=== PATIENT | female | born 1935 | race Caucasian/White ===

== ENCOUNTER 2017-09-30 08:24 | Day surgery (SDC) | payer MEDICARE, OTHER ==
[~2017-09-30 08:24] MED LIST: Lactated Ringers 1,000 ML IV SCH; Lidocaine 1%/Sod Bicarbonate in NS 8.4% 1 ML Syringe IDERM PRN; Sodium Chloride 0.9% 10 ML Syringe FLUSH PRN
[2017-09-30] MEDS ORDERED: Propofol 200 MG/20 ML SDV ONE (08:34)
--- NOTE | 2017-09-30 08:59 | PCM.PREANE ---
Preanesthetic Assessment - Anesthesia/Transfusion/Family Hx Anesthesia History: Prior Anesthesia Without Reaction Family History of Anesthesia Reaction: No Transfusion History: Prior Transfusion Without Reaction Intubation History: Unknown - Review of Systems General: No Symptoms Pulmonary: No Symptoms (quit smokin), Cough (due to seasonal allergies) Cardiovascular: No Symptoms (history of HTN), Palpitations Gastrointestinal: No Symptoms (GERD), Diarrhea (history of C-diff.) Neurological: No Symptoms, Numbness (bilateral hands on occasion) Other: Reports: None (acute UTI), Easy Bleeding (history of rectal bleeding), Diabetes (am blood qdeyl=[phone]), Liver Problems (abnormal liver functions), Depression - Physical Assessment NPO Status Date: 09/29/17 NPO Status Time: 23:00 Pulse: 78 O2 Sat by Pulse Oximetry: 93 Respiratory Rate: 16 Blood Pressure: 146/54 Temperature: 36.7 C Height: 1.65 m Weight: 92 kg ASA Class: 3 Mental Status: Alert & Oriented x3 Airway Class: Mallampati = 2 Dentition: Reports: Dentures (upper and lower) Thyro-Mental Finger Breadths: 3 Mouth Opening Finger Breadths: 3 ROM/Head Extension: Full Lungs: Clear to Auscultation, Normal Respiratory Effort Cardiovascular: Regular Rate, Regular Rhythm, No Murmurs - Allergies Allergies/Adverse Reactions: Allergies Allergy/AdvReac Type Severity Reaction Status Date / Time piroxicam Allergy Cannot Verified 09/29/17 15:08 Remember Sulfa (Sulfonamide Allergy Cannot Verified 09/29/17 15:08 Antibiotics) Remember - Anesthesia Plan Pre-Op Medication Ordered: None - Acknowledgements Anesthesia Type Planned: MAC Pt an Appropriate Candidate for the Planned Anesthesia: Yes Alternatives and Risks of Anesthesia Discussed w Pt/Guardian: Yes Pt/Guardian Understands and Agrees with Anesthesia Plan: Yes PreAnesthesia Questionnaire HEENT History: Reports: Other (See Below) Other HEENT History: facial trauma Cardiovascular History: Reports: High Cholesterol, Hypertension Respiratory History: Reports: Asthma Gastrointestinal History: Reports: GERD, Other (See Below) Other Gastrointestinal History: abdomnial pain, rectal bleeding, cdiff Genitourinary History: Reports: UTI, Recurrent, Other (See Below) Other Genitourinary History: 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 Musculoskeletal History: Reports: Arthritis, Other (See Below) Other Musculoskeletal History: knee abrasions Neurological History: Reports: None Psychiatric History: Reports: Depression Endocrine/Metabolic History: Reports: Diabetes, Type II Hematologic History: Reports: Other (See Below) Other Hematologic History: traumatic hematoma of cheek Immunologic History: Reports: None Oncologic (Cancer) History: Reports: Lung Dermatologic History: Reports: Other (See Below) Other Dermatologic History: melanoma, rash, skin lesion - Past Surgical History Head Surgeries/Procedures: Reports: None HEENT Surgical History: Reports: Cataract Surgery, Tonsillectomy Respiratory Surgical History: Reports: Other (See Below) Other Respiratory Surgeries/Procedures: lung surgery GI Surgical History: Reports: Appendectomy, Colonoscopy, Hernia, Inguinal Female Surgical History: Reports: Oophorectomy Male Surgical History: Reports: None Endocrine Surgical History: Reports: None Neurological Surgical History: Reports: None Musculoskeletal Surgical History: Reports: Hip Replacement Oncologic Surgical History: - SUBSTANCE USE Smoking Status *Q: Never Smoker Recreational Drug Use History: No - HOME MEDS Home Medications: Home Meds Hydrocortisone [Anusol-HC] 1 dose RECTAL BEDTIME 09/29/17 [History] Losartan [Cozaar] 50 mg PO DAILY 09/29/17 [History] Nabumetone [Relafen] 500 mg PO QID PRN 09/29/17 [History] Oxybutynin 5 mg PO TID PRN 09/29/17 [History] Sertraline HCl 200 mg PO DAILY 09/29/17 [History] atorvaSTATin [Lipitor] 10 mg PO DAILY 09/29/17 [History] metFORMIN HCl [Metformin HCl] 500 mg PO DAILY 09/29/17 [History] - CURRENT (IN HOUSE) MEDS Current Meds: Current Medications Lactated Ringer's (Ringers, Lactated) 1,000 mls @ 125 mls/hr IV ASDIRECTED [facility]MA Stop: 09/30/17 23:00 Lidocaine/Sodium Bicarbonate (Buffered Lidocaine 1% In Ns 8.4%) 0.25 ml IDERM ONETIME PRN PRN Reason: Prior to IV Start Stop: 09/30/17 18:00 Sodium Chloride (Saline Flush) 10 ml FLUSH ASDIRECTED PRN PRN Reason: Keep Vein Open Stop: 09/30/17 18:00 Discontinued Medications Propofol (Diprivan 20 Ml) Confirm Administered Dose 200 mg .ROUTE .STK-MED ONE Stop: 09/30/17 08:35
[2017-09-30] MEDS ORDERED: Lidocaine 1% 6 ML ONE (09:36)
[2017-09-30] MEDS ORDERED: Lactated Ringers 1,000 ML ONE (09:38)
--- NOTE | 2017-09-30 10:02 | PCM.OPNOTE ---
- General Post-Op/Procedure Note Date of Surgery/Procedure: 09/30/17 Operative Procedure(s): Colonoscopy with distal rectal mass biopsy 4 Findings: 1. External hemorrhoids 2. Posterior anal fissure 3. Ulcerating soft and friable distal rectal mass lesion about 3 cm in diameter 4. Sigmoid diverticulosis Pre Op Diagnosis: Bright red bleeding per rectum Post-Op Diagnosis: 1. External hemorrhoids. 2. Posterior anal fissure. 3. Ulcerating friable distal rectal mass lesion about 3 cm in diameter. 4. Sigmoid diverticulosis Anesthesia Technique: MAC, Moderate Sedation Primary Surgeon: Vik Fernandez Pathology: Biopsies distal rectal mass lesion EBL in mLs: 5 Complications: None Condition: Good Free Text/Narrative:: After adequate IV sedation and analgesia was obtained the patient was placed on her left side with monitoring. Perianal inspection revealed the external hemorrhoids which are uncomplicated. There was a posterior midline superficial anal fissure. On digital rectal examination I could appreciate a posterior rectal soft mass lesion which was mobile. A lubricated colonoscope was then inserted into the rectum then advanced to the cecum without difficulty. The bowel preparation was good. The cecum right colon and transverse colon were endoscopically normal and had no mass lesions or inflammatory changes that were seen. The descending colon was likewise unremarkable. The sigmoid had a few scattered uncomplicated diverticuli. The scope was then withdrawn to the rectum and in the retroflexed view the distal third rectal mass which was about 3 cm in diameter was visualized. Four-quadrant biopsies were taken with cold forceps. The specimens were retrieved. Air was removed as I finished the procedure which she tolerated well. [employer] photographs were taken for the patient and for the medical record.
--- NOTE | 2017-09-30 10:09 | PCM48HPAN ---
Post Anesthesia Note - EVALUATION WITHIN 48HRS OF ANESTHETIC Vital Signs in Normal Range: Yes Patient Participated in Evaluation: Yes Respiratory Function Stable: Yes Airway Patent: Yes Cardiovascular Function Stable: Yes Hydration Status Stable: Yes Pain Control Satisfactory: Yes Nausea and Vomiting Control Satisfactory: Yes Mental Status Recovered: Yes
== END 2017-09-30 10:52 | disposition home or self-care (01) ==
LOC: JD.SDS 08:24
PROVIDERS: ATTEND Surgery
DX: D12.8 Benign neoplasm of rectum (principal); K62.89 Other specified diseases of anus and rectum; K57.30 Diverticulosis of large intestine without perforation or abscess without bleeding; K64.4 Residual hemorrhoidal skin tags; K60.2 Anal fissure, unspecified; I10 Essential (primary) hypertension; K21.9 Gastro-esophageal reflux disease without esophagitis; E11.9 Type 2 diabetes mellitus without complications; F32.9 Major depressive disorder, single episode, unspecified; E78.00 Pure hypercholesterolemia, unspecified; Z87.891 Personal history of nicotine dependence; Z88.2 Allergy status to sulfonamides; Z88.8 Allergy status to other drugs, medicaments and biological substances; Z98.890 Other specified postprocedural states; J45.909 Unspecified asthma, uncomplicated; Z79.84 Long term (current) use of oral hypoglycemic drugs; Z79.899 Other long term (current) drug therapy
CPT/HCPCS: 45380; 82962; 88305; J7120; 00811; J2704

== ENCOUNTER 2017-10-02 17:35 | Inpatient (IN) | payer MEDICARE, OTHER ==
[2017-10-02] MEDS ORDERED: Sodium Chloride 0.9% 500 ML IV ONE (20:06)
[2017-10-02] MEDS ORDERED: Sodium Chloride 0.9% 10 ML Syringe FLUSH PRN (20:06)
[2017-10-02] MEDS ORDERED: Ondansetron 4 MG/2 ML SDV IVPUSH ONE (20:12)
--- NOTE | 2017-10-02 20:42 | EDM.PDOC ---
ED HPI GENERAL MEDICAL PROBLEM - General Chief Complaint: Abdominal Pain Stated Complaint: COL. ON THU, BLEEDING SOME Time Seen by Provider: 10/02/17 18:39 Source of Information: Reports: Patient, Family (daughter), Old Records History Limitations: Reports: No Limitations - History of Present Illness INITIAL COMMENTS - FREE TEXT/NARRATIVE: 82-year-old female presents with her daughter for evaluation and treatment of bright red blood per rectum post colonoscopy. She had a cough began with Dr. Fernandez on Thursday. Per her report she had a biopsy done. She states that she had a little blood after the colonoscopy but today she appreciated much more blood. Has a difficult time quantifying the blood but states that she is passing clots. She didn't feel little lightheaded this afternoon. No fevers, chills, syncope, chest pain, shortness of breath or any diarrhea. She states she 's had for episodes of feeling she needs to defecate but is only passing bright red blood. Reports that the colonoscopy was due to her kilgore an abdominal infection, possibly C. difficile, states she does with this over a year. She also reports that she had some hemorrhoids. She was on an antibiotic last month. She is always on a probiotic. - Related Data Allergies Allergy/AdvReac Type Severity Reaction Status Date / Time piroxicam Allergy Cannot Verified 09/29/17 15:08 Remember Sulfa (Sulfonamide Allergy Cannot Verified 09/29/17 15:08 Antibiotics) Remember Home Meds: Home Meds Hydrocortisone [Anusol-HC] 1 dose RECTAL BEDTIME 09/29/17 [History] Losartan [Cozaar] 50 mg PO DAILY 09/29/17 [History] Nabumetone [Relafen] 500 mg PO QID PRN 09/29/17 [History] Oxybutynin 5 mg PO TID PRN 09/29/17 [History] Sertraline HCl 200 mg PO DAILY 09/29/17 [History] atorvaSTATin [Lipitor] 10 mg PO BEDTIME 09/29/17 [History] metFORMIN HCl [Metformin HCl] 500 mg PO DAILY 09/29/17 [History] Aspirin [Halfprin] 81 mg PO DAILY 10/02/17 [History] Past Medical History HEENT History: Reports: Other (See Below) Other HEENT History: facial trauma Cardiovascular History: Reports: High Cholesterol, Hypertension Respiratory History: Reports: Asthma Gastrointestinal History: Reports: GERD, Other (See Below) Other Gastrointestinal History: abdomnial pain, rectal bleeding, cdiff Genitourinary History: Reports: UTI, Recurrent, Other (See Below) 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 Musculoskeletal History: Reports: Arthritis, Other (See Below) Other Musculoskeletal History: knee abrasions Neurological History: Reports: None Psychiatric History: Reports: Depression Endocrine/Metabolic History: Reports: Diabetes, Type II Hematologic History: Reports: Other (See Below) Other Hematologic History: traumatic hematoma of cheek Immunologic History: Reports: None Oncologic (Cancer) History: Reports: Lung Dermatologic History: Reports: Other (See Below) Other Dermatologic History: melanoma, rash, skin lesion - Past Surgical History Head Surgeries/Procedures: Reports: None HEENT Surgical History: Reports: Cataract Surgery, Tonsillectomy Respiratory Surgical History: Reports: Other (See Below) Other Respiratory Surgeries/Procedures: lung surgery GI Surgical History: Reports: Appendectomy, Colonoscopy, Hernia, Inguinal Female Surgical History: Reports: Oophorectomy Endocrine Surgical History: Reports: None Neurological Surgical History: Reports: None Musculoskeletal Surgical History: Reports: Hip Replacement Social & Family History - Tobacco Use Smoking Status *Q: Never Smoker - Caffeine Use Caffeine Use: Reports: Coffee, Soda, Tea - Recreational Drug Use Recreational Drug Use: No Drug Use in Last 12 Months: No ED ROS GENERAL - Review of Systems Review Of Systems: See Below Constitutional: Denies: Fever, Chills Respiratory: Denies: Shortness of Breath Cardiovascular: Denies: Chest Pain GI/Abdominal: Denies: Abdominal Pain, Diarrhea, Nausea, Vomiting Musculoskeletal: Reports: Back Pain ED EXAM, GI/ABD - Physical Exam Exam: See Below Exam Limited By: No Limitations General Appearance: Alert, WD/WN, No Apparent Distress Respiratory/Chest: No Respiratory Distress, Lungs Clear, Normal Breath Sounds Cardiovascular: Normal Peripheral Pulses, Regular Rate, Rhythm, No Murmur GI/Abdominal Exam: Normal Bowel Sounds, Soft, Non-Tender Neurological: Alert, Oriented, Normal Cognition Psychiatric: Normal Affect, Normal Mood Skin Exam: Warm, Dry, No Rash, Pallor EKG INTERPRETATION EKG Date: 10/02/17 Time: 20:50 Rhythm: NSR Rate (Beats/Min): 60 [place]: Normal P-Wave: Present QRS: Normal ST-T: Depressed (mild anterior lateral leads) QT: Normal EKG Interpretation Comments: NSR at [address] depression anterior lateral leeads. No acute ST elevation or T wave changes. Reviewed by myself and Dr. Bocanegra Course - Vital Signs Last Recorded V/S: Last Vital Signs Temp 36.3 C 10/02/17 17:55 Pulse 63 10/02/17 17:55 Resp 20 10/02/17 17:55 BP 154/74 H 10/02/17 17:55 Pulse Ox 96 10/02/17 17:55 - Orders/Labs/Meds Orders: Active Orders 24 hr Category Date Time Status Cardiac Monitoring [RC] . DIRECTED Care 10/02/17 20:17 Active Oxygen Therapy, ED [RC] ASDIRECTED Care 10/02/17 21:40 Active Peripheral IV Care [RC] . DIRECTED Care 10/02/17 20:06 Active Abdomen 2V AP Flat Upright [CR] Stat Exams 10/02/17 18:31 Taken Sodium Chloride 0.9% [Saline Flush] Med 10/02/17 20:06 Active 10 ml FLUSH ASDIRECTED PRN Peripheral IV Insertion Adult [OM.PC] Routine Oth 10/02/17 20:06 Ordered Medication Orders Sodium Chloride (Normal Saline) 1,000 mls @ 100 mls/hr IV ASDIRECTED [facility] Insulin Aspart (Novolog) 0 unit SUBCUT Q6H [facility]; Protocol Ondansetron HCl (Zofran) 4 mg IVPUSH Q8H PRN PRN Reason: Nausea Sodium Chloride (Saline Flush) 10 ml FLUSH ASDIRECTED PRN PRN Reason: Keep Vein Open Last Admin: 10/02/17 20:32 Dose: 10 ml Labs: Laboratory Tests 10/02/17 10/02/17 10/02/17 Range/Units 18:44 18:44 18:44 WBC 6.88 (3.98-10.04) K/mm3 RBC 3.42 L (3.98-5.22) M/mm3 Hgb 9.4 L (11.2-15.7) gm/L Hct 28.4 L (34.1-44.9) % MCV 83.0 (79.4-94.8) fl MCH 27.5 (25.6-32.2) pg MCHC 33.1 (32.2-35.5) g/dl RDW Std Deviation 40.8 (36.4-46.3) fL Plt Count 241 (182-369) K/mm3 MPV 10.2 (9.4-12.3) fl Neut % (Auto) 69.4 (34.0-71.1) % Lymph % (Auto) 16.4 L (19.3-51.7) % [place] % (Auto) 10.9 (4.7-12.5) % Eos % (Auto) 2.8 (0.7-5.8) Baso % (Auto) 0.4 (0.1-1.2) % Neut # (Auto) 4.77 (1.56-6.13) K/mm3 Lymph # (Auto) 1.13 L (1.18-3.74) K/mm3 [place] # (Auto) 0.75 H (0.24-0.36) K/mm3 Eos # (Auto) 0.19 (0.04-0.36) K/mm3 Baso # (Auto) 0.03 (0.01-0.08) K/mm3 PT (8.0-13.0) SECONDS INR APTT (22-36) SECONDS Sodium 137 (136-145) mEq/L Potassium 3.7 (3.5-5.1) mEq/L Chloride 101 (98-107) mEq/L Carbon Dioxide 27 (21-32) mEq/L Anion Gap 12.7 (5-15) BUN 12 (7-18) mg/dL Creatinine 0.8 (0.55-1.02) mg/dL Est Cr Clr Drug Dosing 47.95 mL/min Estimated GFR (MDRD) > 60 (>60) mL/min BUN/Creatinine Ratio 15.0 (14-18) Glucose 106 (83-115) mg/dL Calcium 8.6 (8.5-10.1) mg/dL Total Bilirubin 0.2 (0.2-1.0) mg/dL AST 21 (15-37) U/L ALT 13 L (14-59) U/L Alkaline Phosphatase 53 (46-116) U/L Troponin I (0.00-0.056) ng/mL Total Protein 6.1 L (6.4-8.2) g/dl Albumin 3.3 L (3.4-5.0) g/dl Globulin 2.8 gm/dL Albumin/Globulin Ratio 1.2 (1-2) Blood Type O NEGATIVE Gel Antibody Screen Negative 10/02/17 10/02/17 10/02/17 Range/Units 20:25 20:25 20:25 WBC (3.98-10.04) K/mm3 RBC (3.98-5.22) M/mm3 Hgb 9.3 L (11.2-15.7) gm/L Hct 28.1 L (34.1-44.9) % MCV (79.4-94.8) fl MCH (25.6-32.2) pg MCHC (32.2-35.5) g/dl RDW Std Deviation (36.4-46.3) fL Plt Count (182-369) K/mm3 MPV (9.4-12.3) fl Neut % (Auto) (34.0-71.1) % Lymph % (Auto) (19.3-51.7) % [place] % (Auto) (4.7-12.5) % Eos % (Auto) (0.7-5.8) Baso % (Auto) (0.1-1.2) % Neut # (Auto) (1.56-6.13) K/mm3 Lymph # (Auto) (1.18-3.74) K/mm3 [place] # (Auto) (0.24-0.36) K/mm3 Eos # (Auto) (0.04-0.36) K/mm3 Baso # (Auto) (0.01-0.08) K/mm3 PT 10.5 (8.0-13.0) SECONDS INR 0.98 APTT 22 (22-36) SECONDS Sodium (136-145) mEq/L Potassium (3.5-5.1) mEq/L Chloride (98-107) mEq/L Carbon Dioxide (21-32) mEq/L Anion Gap (5-15) BUN (7-18) mg/dL Creatinine (0.55-1.02) mg/dL Est Cr Clr Drug Dosing mL/min Estimated GFR (MDRD) (>60) mL/min BUN/Creatinine Ratio (14-18) Glucose (83-115) mg/dL Calcium (8.5-10.1) mg/dL Total Bilirubin (0.2-1.0) mg/dL AST (15-37) U/L ALT (14-59) U/L Alkaline Phosphatase (46-116) U/L Troponin I 0.019 (0.00-0.056) ng/mL Total Protein (6.4-8.2) g/dl Albumin (3.4-5.0) g/dl Globulin gm/dL Albumin/Globulin Ratio (1-2) Blood Type Gel Antibody Screen Meds: Medications Generic Name Dose Route Start Last Admin Trade Name Freq PRN Reason Stop Dose Admin Sodium Chloride 1,000 mls @ 100 mls/hr 10/02/17 23:30 Normal Saline IV ASDIRECTED [facility] Insulin Aspart 0 unit 10/02/17 22:00 Novolog SUBCUT Q6H [facility] Protocol Ondansetron HCl 4 mg 10/02/17 23:22 Zofran IVPUSH Q8H PRN Nausea Sodium Chloride 10 ml 10/02/17 20:06 10/02/17 20:32 Saline Flush FLUSH 10 ml ASDIRECTED PRN Administration Keep Vein Open Discontinued Medications Generic Name Dose Route Start Last Admin Trade Name Freq PRN Reason Stop Dose Admin Sodium Chloride 500 mls @ 999 mls/hr 10/02/17 20:06 10/02/17 20:16 Normal Saline IV 10/02/17 20:36 999 mls/hr ONETIME ONE Administration Ondansetron HCl 4 mg 10/02/17 20:12 10/02/17 20:32 Zofran IVPUSH 10/02/17 20:13 4 mg ONETIME ONE Administration - Radiology Interpretation Free Text/Narrative:: flatplate and upright abdominal x-ray shows no acute free air. - Re-Assessments/Exams Free Text/Narrative Re-Assessment/Exam: 10/02/17 20:26 The patient got up to use the bathroom. She walked from room 14 into the bathroom at the end of the pedro. Per nursing staff they answered the call light and she says that she is not feeling good. She was on the toilet this time. She then lost consciousness briefly. A CODE BLUE was called. She was found to have a pulse. When I arrived at the ER she was conscious however, disorientated. She then felt nauseous. Blood was appreciated in the toilet, however, due the automatic flush it flushed immediately and also able to visualize how much blood there was. She was placed in a chair and wheeled back to her room. I do not feel she is safe to go home. Case discussed with Dr. Guillaume, surgery on-call. He has agreed to come to the ER and see her. We'll plan to admit her. 10/02/17 22:30 Patient seen in the ER by surgery on-call. I did give the patient a 500 mL bolus. She states that she is feeling better at this time. She will be admitted to ICU. Departure - Departure Time of Disposition: 22:31 Disposition: Admitted As Inpatient 65 Condition: Serious Clinical Impression: Rectal mass Gastrointestinal bleed Qualifiers: GI bleed type/associated pathology: anorectal hemorrhage Qualified Code(s): K62.5 - Hemorrhage of anus and rectum - Discharge Information - My Orders Last 24 Hours: My Active Orders 10/02/17 18:31 Abdomen 2V AP Flat Upright [CR] Stat 10/02/17 20:06 Peripheral IV Care [RC] . DIRECTED Sodium Chloride 0.9% [Saline Flush] 10 ml FLUSH ASDIRECTED PRN Peripheral IV Insertion Adult [OM.PC] Routine 10/02/17 20:17 Cardiac Monitoring [RC] . DIRECTED 10/02/17 21:40 Oxygen Therapy, ED [RC] ASDIRECTED - Assessment/Plan Last 24 Hours: My Active Orders 10/02/17 18:31 Abdomen 2V AP Flat Upright [CR] Stat 10/02/17 20:06 Peripheral IV Care [RC] . DIRECTED Sodium Chloride 0.9% [Saline Flush] 10 ml FLUSH ASDIRECTED PRN Peripheral IV Insertion Adult [OM.PC] Routine 10/02/17 20:17 Cardiac Monitoring [RC] . DIRECTED 10/02/17 21:40 Oxygen Therapy, ED [RC] ASDIRECTED
--- NOTE | 2017-10-02 21:47 | PCM.HP ---
H&P History of Present Illness - General Date of Service: 10/02/17 Source of Information: Patient, Family (Daughter) History Limitations: Reports: No Limitations - History of Present Illness Initial Comments - Free Text/Narative: 82 yo female, h/o DM2, HTN, RIGHT upper extremity melanoma, and GI bleed, had undergone a colonoscopy for evaluation fo GI Bleed, which was significant for a distal rectal mass lesion, which underwent biopsy, post-procedure day #2 (DOS [id number], performed by Dr. Fernandez). The patient went home and did well until this afternoon at around 1600, when she started to pass bright red blood from her anus. This happened about 4-5 times, most recently in the ER. During that episode, she got up to use the restroom, and while on the toilet, she passed out. An DENTAL CHAIR ASSEMBLER was called, but the patient recovered. Her syncopal episode lasted < 1 min, during which she had no memory of the event. This occurred about one hour ago. No further bleeding episodes since then. Denies abdominal pain. Denies chest pain or shortness of breath. No light- headedness at this time. - Related Data Allergies/Adverse Reactions: Allergies Allergy/AdvReac Type Severity Reaction Status Date / Time piroxicam Allergy Cannot Verified 09/29/17 15:08 Remember Sulfa (Sulfonamide Allergy Cannot Verified 09/29/17 15:08 Antibiotics) Remember Home Medications: Home Meds Hydrocortisone [Anusol-HC] 1 dose RECTAL BEDTIME 09/29/17 [History] Losartan [Cozaar] 50 mg PO DAILY 09/29/17 [History] Nabumetone [Relafen] 500 mg PO QID PRN 09/29/17 [History] Oxybutynin 5 mg PO TID PRN 09/29/17 [History] Sertraline HCl 200 mg PO DAILY 09/29/17 [History] atorvaSTATin [Lipitor] 10 mg PO BEDTIME 09/29/17 [History] metFORMIN HCl [Metformin HCl] 500 mg PO DAILY 09/29/17 [History] Aspirin [Halfprin] 81 mg PO DAILY 10/02/17 [History] Past Medical History HEENT History: Reports: Other (See Below) Other HEENT History: facial trauma Cardiovascular History: Reports: High Cholesterol, Hypertension (on losartan) Respiratory History: Reports: Asthma Gastrointestinal History: Reports: GERD, Other (See Below) Other Gastrointestinal History: abdomnial pain, rectal bleeding, cdiff Genitourinary History: Reports: UTI, Recurrent, Other (See Below) Other Genitourinary History: [employer] History: Reports: None Musculoskeletal History: Reports: Arthritis, Other (See Below) Other Musculoskeletal History: knee abrasions Neurological History: Reports: None Psychiatric History: Reports: Depression Endocrine/Metabolic History: Reports: Diabetes, Type II Hematologic History: Reports: Other (See Below) Other Hematologic History: traumatic hematoma of cheek Immunologic History: Reports: None Oncologic (Cancer) History: Reports: Malignant Melanoma (RIGHT upper extremity) Dermatologic History: Reports: Other (See Below) Other Dermatologic History: melanoma, rash, skin lesion - Past Surgical History Head Surgeries/Procedures: Reports: None HEENT Surgical History: Reports: Cataract Surgery, Tonsillectomy Respiratory Surgical History: Reports: Other (See Below) Other Respiratory Surgeries/Procedures: lung surgery GI Surgical History: Reports: Appendectomy, Colonoscopy (09/30/2017 (two days ago) ), Hernia, Inguinal Female Surgical History: Reports: Hysterectomy, Oophorectomy Endocrine Surgical History: Reports: None Neurological Surgical History: Reports: None Musculoskeletal Surgical History: Reports: Knee Replacement (bilateral) Other Dermatological Surgeries/Procedures: Excision of LEFT upper extremity melanoma (several months ago) - History Comment History Comment: No prior W[place] or stroke. Social & Family History - Tobacco Use Smoking Status *Q: Former Smoker (Quit many years ago.) - Caffeine Use Caffeine Use: Reports: Coffee, Soda, Tea - Recreational Drug Use Recreational Drug Use: No Drug Use in Last 12 Months: No - Living Situation & Occupation Living situation: Reports: Alone H&P Review of Systems - Review of Systems: Review Of Systems: See Below General: Reports: Fatigue HEENT: Reports: No Symptoms Pulmonary: Reports: No Symptoms Cardiovascular: Reports: No Symptoms Gastrointestinal: Reports: No Symptoms Genitourinary: Reports: No Symptoms Musculoskeletal: Reports: No Symptoms Skin: Reports: No Symptoms Neurological: Reports: No Symptoms Exam - Exam Exam: See Below - Vital Signs Vital Signs: Last Vital Signs Temp 36.3 C 10/02/17 17:55 Pulse 63 10/02/17 17:55 Resp 20 10/02/17 17:55 BP 154/74 H 10/02/17 17:55 Pulse Ox 96 10/02/17 17:55 Weight: 92.079 kg - Exam General: Alert, Oriented, Cooperative. No: Mild Distress HEENT: Conjunctiva Clear, Scleral Icterus Neck: Supple, Trachea Midline. No: Lymphadenopathy Lungs: Clear to Auscultation, Normal Respiratory Effort Cardiovascular: Regular Rate, Regular Rhythm, Normal S1, Normal S2. No: Systolic Murmur GI/Abdominal Exam: Soft, Non-Tender Rectal (Female) Exam: Other (External exam revealed no active bleeding. Small amount of dried blood around the anal verge.) Extremities: Normal Inspection (Well-healed bilateral knee surgical scars.) Skin: Warm, Dry Neuro Extensive - Mental Status: Alert, Oriented x3, Normal Mood/Affect, Normal Cognition Psychiatric: Alert, Normal Affect, Normal Mood - Patient Data Lab Results Last 24 hrs: Laboratory Results - last 24 hr 10/02/17 10/02/17 10/02/17 Range/Units 18:44 18:44 18:44 WBC 6.88 (3.98-10.04) K/mm3 RBC 3.42 L (3.98-5.22) M/mm3 Hgb 9.4 L (11.2-15.7) gm/L Hct 28.4 L (34.1-44.9) % MCV 83.0 (79.4-94.8) fl MCH 27.5 (25.6-32.2) pg MCHC 33.1 (32.2-35.5) g/dl RDW Std Deviation 40.8 (36.4-46.3) fL Plt Count 241 (182-369) K/mm3 MPV 10.2 (9.4-12.3) fl Neut % (Auto) 69.4 (34.0-71.1) % Lymph % (Auto) 16.4 L (19.3-51.7) % Lewis % (Auto) 10.9 (4.7-12.5) % Eos % (Auto) 2.8 (0.7-5.8) Baso % (Auto) 0.4 (0.1-1.2) % Neut # (Auto) 4.77 (1.56-6.13) K/mm3 Lymph # (Auto) 1.13 L (1.18-3.74) K/mm3 Lewis # (Auto) 0.75 H (0.24-0.36) K/mm3 Eos # (Auto) 0.19 (0.04-0.36) K/mm3 Baso # (Auto) 0.03 (0.01-0.08) K/mm3 Sodium 137 (136-145) mEq/L Potassium 3.7 (3.5-5.1) mEq/L Chloride 101 (98-107) mEq/L Carbon Dioxide 27 (21-32) mEq/L Anion Gap 12.7 (5-15) BUN 12 (7-18) mg/dL Creatinine 0.8 (0.55-1.02) mg/dL Est Cr Clr Drug Dosing 47.95 mL/min Estimated GFR (MDRD) > 60 (>60) mL/min BUN/Creatinine Ratio 15.0 (14-18) Glucose 106 (83-115) mg/dL Calcium 8.6 (8.5-10.1) mg/dL Total Bilirubin 0.2 (0.2-1.0) mg/dL AST 21 (15-37) U/L ALT 13 L (14-59) U/L Alkaline Phosphatase 53 (46-116) U/L Troponin I (0.00-0.056) ng/mL Total Protein 6.1 L (6.4-8.2) g/dl Albumin 3.3 L (3.4-5.0) g/dl Globulin 2.8 gm/dL Albumin/Globulin Ratio 1.2 (1-2) Blood Type O NEGATIVE Gel Antibody Screen Negative 10/02/17 10/02/17 Range/Units 20:25 20:25 WBC (3.98-10.04) K/mm3 RBC (3.98-5.22) M/mm3 Hgb 9.3 L (11.2-15.7) gm/L Hct 28.1 L (34.1-44.9) % MCV (79.4-94.8) fl MCH (25.6-32.2) pg MCHC (32.2-35.5) g/dl RDW Std Deviation (36.4-46.3) fL Plt Count (182-369) K/mm3 MPV (9.4-12.3) fl Neut % (Auto) (34.0-71.1) % Lymph % (Auto) (19.3-51.7) % Lewis % (Auto) (4.7-12.5) % Eos % (Auto) (0.7-5.8) Baso % (Auto) (0.1-1.2) % Neut # (Auto) (1.56-6.13) K/mm3 Lymph # (Auto) (1.18-3.74) K/mm3 Lewis # (Auto) (0.24-0.36) K/mm3 Eos # (Auto) (0.04-0.36) K/mm3 Baso # (Auto) (0.01-0.08) K/mm3 Sodium (136-145) mEq/L Potassium (3.5-5.1) mEq/L Chloride (98-107) mEq/L Carbon Dioxide (21-32) mEq/L Anion Gap (5-15) BUN (7-18) mg/dL Creatinine (0.55-1.02) mg/dL Est Cr Clr Drug Dosing mL/min Estimated GFR (MDRD) (>60) mL/min BUN/Creatinine Ratio (14-18) Glucose (83-115) mg/dL Calcium (8.5-10.1) mg/dL Total Bilirubin (0.2-1.0) mg/dL AST (15-37) U/L ALT (14-59) U/L Alkaline Phosphatase (46-116) U/L Troponin I 0.019 (0.00-0.056) ng/mL Total Protein (6.4-8.2) g/dl Albumin (3.4-5.0) g/dl Globulin gm/dL Albumin/Globulin Ratio (1-2) Blood Type Gel Antibody Screen Result Diagrams: 10/02/17 22:10 10/02/17 18:44 Imaging Impressions Last 24 hrs: Abdominal X-ray -normal bowel gas pattern. - Problem List (1) Gastrointestinal bleed SNOMED Code(s): 61480063 ICD Code: K92.2 - GASTROINTESTINAL HEMORRHAGE, UNSPECIFIED Status: Acute Current Visit: Yes Qualifiers: GI bleed type/associated pathology: anorectal hemorrhage Qualified Code(s) : K62.5 - Hemorrhage of anus and rectum Problem List Initiated/Reviewed/Updated: Yes Orders Last 24hrs: Active Orders 24 hr Category Date Time Status Cardiac Monitoring [RC] . DIRECTED Care 10/02/17 20:17 Active EKG 12 Lead [EKG Documentation Completion] [RC] STAT Care 10/02/17 20:12 Active Oxygen Therapy, ED [RC] ASDIRECTED Care 10/02/17 21:40 Active Peripheral IV Care [RC] . DIRECTED Care 10/02/17 20:06 Active Abdomen 2V AP Flat Upright [CR] Stat Exams 10/02/17 18:31 Taken TROPONIN I [CHEM] Stat Lab 10/02/17 21:08 Ordered Sodium Chloride 0.9% [Saline Flush] Med 10/02/17 20:06 Active 10 ml FLUSH ASDIRECTED PRN Peripheral IV Insertion Adult [OM.PC] Routine Oth 10/02/17 20:06 Ordered Medication Orders Sodium Chloride (Saline Flush) 10 ml FLUSH ASDIRECTED PRN PRN Reason: Keep Vein Open Last Admin: 10/02/17 20:32 Dose: 10 ml Assessment/Plan Comment:: Mrs. Vital is a 82 yo female, h/o DM2, HTN, melanoma, and GI bleed, PPD#2 s/p recent colonoscopy with biopsy of distal rectal mass lesion, presents with GI bleed and recent in-hospital syncopal episode. Likely source of bleeding is the distal mass/biopsy site. Recommend inpatient admission to ICU for close monitoring. - NEURO: Recent syncopal episode related to GI bleed. Will place on bedrest for now, with assistance with toileting. - CV: Hemodynamically normal (HR 60's, SBP 140's). h/o HTN. Hold home dose of ARB. - PULM: Encourage IS while in hospital. - GI: NPO. GI bleed likely from distal rectal mass/biopsy site. Will closely monitor for further bleeding episodes. If further bleeding occurs, will consider procedural intervention. Discussed with the patient regarding potential need for endoscopic intervention. Indications, risks, and benefits were discussed. Risks include infection, inability to stop the bleeding, damage to surrounding structures, need for additional procedures, DVT/PE, CVA, [place], and . Alternatively, I can attempt placement of a hemostatic agent into the anus to achieve tamponade/hemostatic effect, which would be less invasive. However, if bleeding persists despite this, will require procedural intervention as above. - FEN: Monitor electrolytes. Maintenance IV fluids. - RENAL: No acute issues. Closely monitor UOP. - HEME: GI hemorrhage, likely from distal rectal mass/biopsy site. Patient with Hb of 9 (baseline 11 from 02/2017). Will monitor H/H q6h. Consider blood transfusion if clinically indicated. Type and cross for 2 units and have available. - ENDO: h/o DM2 on metformin. Hold metformin. Check BS q6h with low dose SSI. - LINES: Ensure 2 large bore PIV's. May require To for monitoring of UOP. - Prophyalxis: SCD's bilateral LE's. With active bleeding, contraindication to pharmacologic VTE prophylaxis. Discussed patient's code status with the patient and her daughter. She desires to be DNR.
[2017-10-02] MEDS ORDERED: Ondansetron 4 MG/2 ML SDV IVPUSH PRN (23:22)
[2017-10-02] MEDS ORDERED: Sodium Chloride 0.9% 1,000 ML IV SCH (23:30)
[2017-10-03] MEDS: Insulin Aspart 100 Units/ML 3 ML Pen SUBCUT SCH ×6 (01:01→22:15)
[2017-10-03] MEDS: Sodium Chloride 0.9% 1,000 ML IV SCH ×2 (01:05→11:11)
--- NOTE | 2017-10-03 12:55 | PCM.PN ---
- General Info Date of Service: 10/03/17 Admission Dx/Problem (Free Text): bright red blood per rectum Subjective Update: Overnight, no acute events. Patient was able to void spontaneously out of bed, without further episodes of GI bleed. Patient denies light-headedness. Denies chest pain/SOB. No nausea/emesis. Patient willing to eat. Functional Status: Reports: Pain Controlled - Patient Data Vitals - Most Recent: Last Vital Signs Temp 36.6 C 10/03/17 11:59 Pulse 73 10/03/17 11:59 Resp 14 10/03/17 11:59 BP 119/59 L 10/03/17 11:59 Pulse Ox 96 10/03/17 11:59 Weight - Most Recent: 95.663 kg I&O - Last 24 Hours: Intake & Output 10/02/17 10/03/17 10/03/17 22:59 06:59 14:59 Intake Total 532 Output Total 0 500 Balance 532 -500 Lab Results Last 24 Hours: Laboratory Results - last 24 hr 10/02/17 10/02/17 10/02/17 Range/Units 18:44 18:44 18:44 WBC 6.88 (3.98-10.04) K/mm3 RBC 3.42 L (3.98-5.22) M/mm3 Hgb 9.4 L (11.2-15.7) gm/L Hct 28.4 L (34.1-44.9) % MCV 83.0 (79.4-94.8) fl MCH 27.5 (25.6-32.2) pg MCHC 33.1 (32.2-35.5) g/dl RDW Std Deviation 40.8 (36.4-46.3) fL Plt Count 241 (182-369) K/mm3 MPV 10.2 (9.4-12.3) fl Neut % (Auto) 69.4 (34.0-71.1) % Lymph % (Auto) 16.4 L (19.3-51.7) % Dundy % (Auto) 10.9 (4.7-12.5) % Eos % (Auto) 2.8 (0.7-5.8) Baso % (Auto) 0.4 (0.1-1.2) % Neut # (Auto) 4.77 (1.56-6.13) K/mm3 Lymph # (Auto) 1.13 L (1.18-3.74) K/mm3 Dundy # (Auto) 0.75 H (0.24-0.36) K/mm3 Eos # (Auto) 0.19 (0.04-0.36) K/mm3 Baso # (Auto) 0.03 (0.01-0.08) K/mm3 Manual Slide Review PT (8.0-13.0) SECONDS INR APTT (22-36) SECONDS Sodium 137 (136-145) mEq/L Potassium 3.7 (3.5-5.1) mEq/L Chloride 101 (98-107) mEq/L Carbon Dioxide 27 (21-32) mEq/L Anion Gap 12.7 (5-15) BUN 12 (7-18) mg/dL Creatinine 0.8 (0.55-1.02) mg/dL Est Cr Clr Drug Dosing 47.95 mL/min Estimated GFR (MDRD) > 60 (>60) mL/min BUN/Creatinine Ratio 15.0 (14-18) Glucose 106 (83-115) mg/dL POC Glucose (83-110) mg/dL Calcium 8.6 (8.5-10.1) mg/dL Total Bilirubin 0.2 (0.2-1.0) mg/dL AST 21 (15-37) U/L ALT 13 L (14-59) U/L Alkaline Phosphatase 53 (46-116) U/L Troponin I (0.00-0.056) ng/mL Total Protein 6.1 L (6.4-8.2) g/dl Albumin 3.3 L (3.4-5.0) g/dl Globulin 2.8 gm/dL Albumin/Globulin Ratio 1.2 (1-2) Blood Type O NEGATIVE Gel Antibody Screen Negative Crossmatch See Detail 10/02/17 10/02/17 10/02/17 Range/Units 20:25 20:25 20:25 WBC (3.98-10.04) K/mm3 RBC (3.98-5.22) M/mm3 Hgb 9.3 L (11.2-15.7) gm/L Hct 28.1 L (34.1-44.9) % MCV (79.4-94.8) fl MCH (25.6-32.2) pg MCHC (32.2-35.5) g/dl RDW Std Deviation (36.4-46.3) fL Plt Count (182-369) K/mm3 MPV (9.4-12.3) fl Neut % (Auto) (34.0-71.1) % Lymph % (Auto) (19.3-51.7) % Dundy % (Auto) (4.7-12.5) % Eos % (Auto) (0.7-5.8) Baso % (Auto) (0.1-1.2) % Neut # (Auto) (1.56-6.13) K/mm3 Lymph # (Auto) (1.18-3.74) K/mm3 Dundy # (Auto) (0.24-0.36) K/mm3 Eos # (Auto) (0.04-0.36) K/mm3 Baso # (Auto) (0.01-0.08) K/mm3 Manual Slide Review PT 10.5 (8.0-13.0) SECONDS INR 0.98 APTT 22 (22-36) SECONDS Sodium (136-145) mEq/L Potassium (3.5-5.1) mEq/L Chloride (98-107) mEq/L Carbon Dioxide (21-32) mEq/L Anion Gap (5-15) BUN (7-18) mg/dL Creatinine (0.55-1.02) mg/dL Est Cr Clr Drug Dosing mL/min Estimated GFR (MDRD) (>60) mL/min BUN/Creatinine Ratio (14-18) Glucose (83-115) mg/dL POC Glucose (83-110) mg/dL Calcium (8.5-10.1) mg/dL Total Bilirubin (0.2-1.0) mg/dL AST (15-37) U/L ALT (14-59) U/L Alkaline Phosphatase (46-116) U/L Troponin I 0.019 (0.00-0.056) ng/mL Total Protein (6.4-8.2) g/dl Albumin (3.4-5.0) g/dl Globulin gm/dL Albumin/Globulin Ratio (1-2) Blood Type Gel Antibody Screen Crossmatch 10/02/17 10/03/17 10/03/17 Range/Units 22:10 03:57 03:57 WBC 8.98 9.65 (3.98-10.04) K/mm3 RBC 3.17 L 2.91 L (3.98-5.22) M/mm3 Hgb 8.7 L 7.9 L (11.2-15.7) gm/L Hct 26.5 L 24.4 L (34.1-44.9) % MCV 83.6 83.8 (79.4-94.8) fl MCH 27.4 27.1 (25.6-32.2) pg MCHC 32.8 32.4 (32.2-35.5) g/dl RDW Std Deviation 41.1 40.8 (36.4-46.3) fL Plt Count 212 205 (182-369) K/mm3 MPV 10.6 10.5 (9.4-12.3) fl Neut % (Auto) 82.3 H (34.0-71.1) % Lymph % (Auto) 7.8 L (19.3-51.7) % Dundy % (Auto) 8.4 (4.7-12.5) % Eos % (Auto) 0.9 (0.7-5.8) Baso % (Auto) 0.2 (0.1-1.2) % Neut # (Auto) 7.39 H (1.56-6.13) K/mm3 Lymph # (Auto) 0.70 L (1.18-3.74) K/mm3 Dundy # (Auto) 0.75 H (0.24-0.36) K/mm3 Eos # (Auto) 0.08 (0.04-0.36) K/mm3 Baso # (Auto) 0.02 (0.01-0.08) K/mm3 Manual Slide Review Abnormal smear PT (8.0-13.0) SECONDS INR APTT (22-36) SECONDS Sodium 138 (136-145) mEq/L Potassium 4.0 (3.5-5.1) mEq/L Chloride 103 (98-107) mEq/L Carbon Dioxide 27 (21-32) mEq/L Anion Gap 12.0 (5-15) BUN 12 (7-18) mg/dL Creatinine 0.7 (0.55-1.02) mg/dL Est Cr Clr Drug Dosing 54.79 mL/min Estimated GFR (MDRD) > 60 (>60) mL/min BUN/Creatinine Ratio 17.1 (14-18) Glucose 155 H (83-115) mg/dL POC Glucose (83-110) mg/dL Calcium 7.9 L (8.5-10.1) mg/dL Total Bilirubin (0.2-1.0) mg/dL AST (15-37) U/L ALT (14-59) U/L Alkaline Phosphatase (46-116) U/L Troponin I (0.00-0.056) ng/mL Total Protein (6.4-8.2) g/dl Albumin (3.4-5.0) g/dl Globulin gm/dL Albumin/Globulin Ratio (1-2) Blood Type Gel Antibody Screen Crossmatch 10/03/17 10/03/17 Range/Units 10:25 11:14 WBC 6.82 (3.98-10.04) K/mm3 RBC 2.89 L (3.98-5.22) M/mm3 Hgb 7.9 L (11.2-15.7) gm/L Hct 24.4 L (34.1-44.9) % MCV 84.4 (79.4-94.8) fl MCH 27.3 (25.6-32.2) pg MCHC 32.4 (32.2-35.5) g/dl RDW Std Deviation 41.4 (36.4-46.3) fL Plt Count 215 (182-369) K/mm3 MPV 10.9 (9.4-12.3) fl Neut % (Auto) (34.0-71.1) % Lymph % (Auto) (19.3-51.7) % Dundy % (Auto) (4.7-12.5) % Eos % (Auto) (0.7-5.8) Baso % (Auto) (0.1-1.2) % Neut # (Auto) (1.56-6.13) K/mm3 Lymph # (Auto) (1.18-3.74) K/mm3 Dundy # (Auto) (0.24-0.36) K/mm3 Eos # (Auto) (0.04-0.36) K/mm3 Baso # (Auto) (0.01-0.08) K/mm3 Manual Slide Review PT (8.0-13.0) SECONDS INR APTT (22-36) SECONDS Sodium (136-145) mEq/L Potassium (3.5-5.1) mEq/L Chloride (98-107) mEq/L Carbon Dioxide (21-32) mEq/L Anion Gap (5-15) BUN (7-18) mg/dL Creatinine (0.55-1.02) mg/dL Est Cr Clr Drug Dosing mL/min Estimated GFR (MDRD) (>60) mL/min BUN/Creatinine Ratio (14-18) Glucose (83-115) mg/dL POC Glucose 105 (83-110) mg/dL Calcium (8.5-10.1) mg/dL Total Bilirubin (0.2-1.0) mg/dL AST (15-37) U/L ALT (14-59) U/L Alkaline Phosphatase (46-116) U/L Troponin I (0.00-0.056) ng/mL Total Protein (6.4-8.2) g/dl Albumin (3.4-5.0) g/dl Globulin gm/dL Albumin/Globulin Ratio (1-2) Blood Type Gel Antibody Screen Crossmatch Med Orders - Current: Current Medications Potassium Chloride/Dextrose/Sod Cl (D5 1/2 Ns W/ 20 Meq/L Kcl) 1,000 mls @ 100 mls/hr IV ASDIRECTED IRMA Insulin Aspart (Novolog) 0 unit SUBCUT Q6H IRMA; Protocol Last Admin: 10/03/17 11:15 Dose: Not Given Ondansetron HCl (Zofran) 4 mg IVPUSH Q8H PRN PRN Reason: Nausea Sodium Chloride (Saline Flush) 10 ml FLUSH ASDIRECTED PRN PRN Reason: Keep Vein Open Last Admin: 10/02/17 20:32 Dose: 10 ml Discontinued Medications Sodium Chloride (Normal Saline) 500 mls @ 999 mls/hr IV ONETIME ONE Stop: 10/02/17 20:36 Last Admin: 10/02/17 20:16 Dose: 999 mls/hr Sodium Chloride (Normal Saline) 1,000 mls @ 100 mls/hr IV ASDIRECTED IRMA Last Admin: 10/03/17 11:11 Dose: 100 mls/hr Sodium Chloride (Normal Saline) 1,000 mls @ 90 mls/hr IV ASDIRECTED [facility] Ondansetron HCl (Zofran) 4 mg IVPUSH ONETIME ONE Stop: 10/02/17 20:13 Last Admin: 10/02/17 20:32 Dose: 4 mg - Exam General: Alert, Oriented, Cooperative, No Acute Distress GI/Abdominal Exam: Soft, Non-Tender, No Distention - Problem List & Annotations (1) Gastrointestinal bleed SNOMED Code(s): 91130782 Code(s): K92.2 - GASTROINTESTINAL HEMORRHAGE, UNSPECIFIED Status: Acute Current Visit: Yes Qualifiers: GI bleed type/associated pathology: anorectal hemorrhage Qualified Code(s) : K62.5 - Hemorrhage of anus and rectum - Problem List Review Problem List Initiated/Reviewed/Updated: Yes - My Orders Last 24 Hours: My Active Orders 10/02/17 21:47 Patient Status [ADT] Urgent Bedrest Bedside Commode [RC] ASDIRECTED Oxygen Therapy [RC] PRN VTE/DVT Education [RC] PER UNIT ROUTINE Vital Signs [RC] Q4HR Glucose Management Sub Q Reflex [OM.PC] Click To Edit VTE Pharmacological Contraindications [AST] Per Unit Routine Resuscitation Status Routine 10/02/17 21:49 Intake and Output [RC] Q2HR Pulse Oximetry [RC] CONTINUOUS 10/02/17 21:50 Diabetes Education [RC] Click to Edit Sequential Compression Device [OM.PC] Per Unit Routine 10/02/17 22:00 Insulin Aspart [NovoLOG] See Protocol SUBCUT Q6H 10/02/17 23:22 Ondansetron [Zofran] 4 mg IVPUSH Q8H PRN 10/02/17 Dinner Nothing per Oral Now Diet [DIET] 10/03/17 12:22 Blood Glucose Check, Bedside [RC] Q6HR 10/03/17 12:48 Up to Chair [RC] ASDIRECTED 10/03/17 13:00 D5 1/2 NS w/ 20 mEq/L KCl 1,000 ml IV ASDIRECTED 10/03/17 16:00 HEMOGLOBIN/HEMATOCRIT,HH [HEME] Routine - Plan Plan:: Mrs. Vital is a 82 yo female, h/o DM2, HTN, melanoma, and GI bleed, PPD#3 s/p recent colonoscopy with biopsy of distal rectal mass lesion, presents with GI bleed and syncopal episode in the ER. Admitted late last night to the ICU for GI bleed, ICU day #2. Likely source of bleeding is the distal mass/biopsy site. - NEURO: No acute issues at this time. - CV: Hemodynamically normal (HR 60-80's, SBP 110's-130's). h/o HTN. Hold home dose of ARB. - PULM: Encourage IS while in hospital. - GI: NPO for now. Will consider initiation of diet tonight if H/H remains stable at next lab draw (at 1600). - FEN: Monitor electrolytes. Maintenance IV fluids. Change to D5-1/2NS+20mEq KCl. - RENAL: No acute issues. Good UOP. Closely monitor UOP. - HEME: GI hemorrhage, likely from distal rectal mass/biopsy site. Patient with Hb of 7.9 (down from 9 yesterday), but has been stable x2 values. No further episodes of bleeding since admission late last night. Will continue to monitor H /H q6h. Consider blood transfusion if clinically indicated. Type and cross for 2 units and have available. - ENDO: h/o DM2 on metformin. Hold metformin. BS low 100's-155. Check BS q6h with low dose SSI. - LINES: Ensure 2 large bore PIV's. - Prophyalxis: SCD's bilateral LE's. With active bleeding, contraindication to pharmacologic VTE prophylaxis. - Cod status: DNR. Howard Ramos M.D., F.A.C.S. General Surgery Pager: [phone]
[2017-10-03] MEDS ORDERED: D5 1/2 NS w/ 20 mEq/L KCl 1,000 ML IV SCH (13:00)
--- NOTE | 2017-10-03 16:12 | CR ---
Abdomen: Supine and upright views of the abdomen were obtained. Comparison: No prior abdominal x-ray. Scoliosis is noted within the spine. Bony structures are osteopenic. Scattered air-fluid levels are seen within small bowel which appear within normal limits at this time. No free air is seen. No bowel dilatation is seen. Impression: 1. Incidental findings. Nothing acute is appreciated on two-view abdominal x-ray. No free air is seen. Diagnostic code #2
[2017-10-04] MEDS: Insulin Aspart 100 Units/ML 3 ML Pen SUBCUT SCH ×4 (06:52→21:13)
--- NOTE | 2017-10-04 11:34 | PCM.PN ---
- General Info Date of Service: 10/04/17 Subjective Update: No acute overnight events. Patient has had no further bleeding episodes. She had a normal bowel movement this morning, without bleeding. She has been tolerating a full liquid diet without abdominal pain, nausea/emesis. She denies light-headedness, chest pain, or shortness of breath. - Patient Data Vitals - Most Recent: Last Vital Signs Temp 37.1 C 10/04/17 07:33 Pulse 68 10/03/17 20:00 Resp 18 10/04/17 09:25 BP 115/59 L 10/04/17 09:25 Pulse Ox 96 10/04/17 09:25 Weight - Most Recent: 95.889 kg I&O - Last 24 Hours: Intake & Output 10/03/17 10/04/17 10/04/17 22:59 06:59 14:59 Intake Total 1720 600 600 Output Total 550 700 400 Balance 1170 -100 200 UOP 73 cc/hr over past 24 hours Lab Results Last 24 Hours: Laboratory Results - last 24 hr 10/03/17 10/03/17 10/03/17 Range/Units 16:00 17:37 21:22 Hgb 8.0 L (11.2-15.7) gm/L Hct 24.7 L (34.1-44.9) % POC Glucose 158 H 132 H (83-110) mg/dL 10/04/17 10/04/17 Range/Units 05:05 05:06 Hgb 7.4 L (11.2-15.7) gm/L Hct 23.1 L (34.1-44.9) % POC Glucose 119 H (83-110) mg/dL Med Orders - Current: Current Medications Insulin Aspart (Novolog) 0 unit SUBCUT QIDACANDBED [facility]; Protocol Last Admin: 10/04/17 06:52 Dose: Not Given Ondansetron HCl (Zofran) 4 mg IVPUSH Q8H PRN PRN Reason: Nausea Sodium Chloride (Saline Flush) 10 ml FLUSH ASDIRECTED PRN PRN Reason: Keep Vein Open Last Admin: 10/02/17 20:32 Dose: 10 ml Discontinued Medications Sodium Chloride (Normal Saline) 500 mls @ 999 mls/hr IV ONETIME ONE Stop: 10/02/17 20:36 Last Admin: 10/02/17 20:16 Dose: 999 mls/hr Sodium Chloride (Normal Saline) 1,000 mls @ 100 mls/hr IV ASDIRECTED [facility] Last Admin: 10/03/17 11:11 Dose: 100 mls/hr Sodium Chloride (Normal Saline) 1,000 mls @ 90 mls/hr IV ASDIRECTED [facility] Potassium Chloride/Dextrose/Sod Cl (D5 1/2 Ns W/ 20 Meq/L Kcl) 1,000 mls @ 100 mls/hr IV ASDIRECTED [facility] Last Admin: 10/03/17 13:46 Dose: 100 mls/hr Insulin Aspart (Novolog) 0 unit SUBCUT Q6H [facility]; Protocol Last Admin: 10/03/17 17:39 Dose: Not Given Ondansetron HCl (Zofran) 4 mg IVPUSH ONETIME ONE Stop: 10/02/17 20:13 Last Admin: 10/02/17 20:32 Dose: 4 mg - Exam GI/Abdominal Exam: Soft, Non-Tender, No Distention - Problem List & Annotations (1) Gastrointestinal bleed SNOMED Code(s): 93564447 Code(s): K92.2 - GASTROINTESTINAL HEMORRHAGE, UNSPECIFIED Status: Acute Current Visit: Yes Qualifiers: GI bleed type/associated pathology: anorectal hemorrhage Qualified Code(s) : K62.5 - Hemorrhage of anus and rectum - Problem List Review Problem List Initiated/Reviewed/Updated: Yes - My Orders Last 24 Hours: My Active Orders 10/03/17 12:48 Up to Chair [] ASDIRECTED 10/03/17 16:35 Blood Glucose Check, Bedside [RC] QIDACANDBED 10/03/17 16:40 Dietary Supplements [RC] TIDMEALS 10/03/17 17:00 Insulin Aspart [NovoLOG] See Protocol SUBCUT QIDACANDBED 10/03/17 Dinner Full Liquid Diet [DIET] - Plan Plan:: Mrs. Vital is a 82 yo female, h/o DM2, HTN, melanoma, and GI bleed, PPD#4 s/p recent colonoscopy with biopsy of distal rectal mass lesion, presents with GI bleed and syncopal episode in the ER. Admitted late night on 02Oct2017, ICU day #3. Likely source of bleeding is the distal mass/biopsy site. - NEURO: No acute issues at this time. - CV: Hemodynamically normal (HR 70-80's, SBP 110's-150's). h/o HTN. Hold home dose of ARB. - PULM: Encourage IS while in hospital. - GI: May advance from full liquid diet to regular diet, with protein supplement. - FEN: As above. - RENAL: No acute issues. Good UOP. Closely monitor UOP. - HEME: GI hemorrhage, likely from distal rectal mass/biopsy site. Patient with Hb currently at 7.4 (down from 7.9 yesterday, and 9 the day before). Given decreasing H/H and patient's age, will transfuse 2 units PRBC's today. Will recheck H/H after transfusion. Patient was again consented for blood transfusion and consent form signed. - ENDO: h/o DM2 on metformin. Hold metformin. BS low 105-158 (1 unit insulin past 24 hours). Check BS QAC and HS. - LINES: Ensure 2 large bore PIV's. - Prophyalxis: SCD's bilateral LE's. With recent bleeding, contraindication to pharmacologic VTE prophylaxis. - Cod status: DNR. - Dispo: Continue ICU care. Briefly discussed potential need for nursing facility following discharge from hospital. Plan for discharge tomorrow at the earliest. The patient's daughter (Amaya) was updated on the plan of care, by telephone. Howard Ramos M.D., F.A.C.S. General Surgery Pager: [phone]
[2017-10-04] MEDS ORDERED: Sodium Chloride 0.9% 100 ML IV SCH (13:00)
[2017-10-04] MEDS ORDERED: Sodium Chloride 0.9% 100 ML ONE (16:45)
[2017-10-05] MEDS: Insulin Aspart 100 Units/ML 3 ML Pen SUBCUT SCH ×2 (06:46→11:40)
--- NOTE | 2017-10-05 11:09 | PCM.PN ---
- General Info Date of Service: 10/05/17 Subjective Update: 24 hour events: Transfused 2 units PRBC. No acute overnight events. Patient denies complaints. No further episodes of bleeding (none since admission ). Tolerating diabetic diet. No CP/SOB/light-headedness. - Patient Data Vitals - Most Recent: Last Vital Signs Temp 36.8 C 10/05/17 08:00 Pulse 63 10/05/17 08:00 Resp 12 10/05/17 08:00 BP 151/62 H 10/05/17 08:00 Pulse Ox 97 10/05/17 08:00 Weight - Most Recent: 92.669 kg I&O - Last 24 Hours: Intake & Output 10/04/17 10/05/17 10/05/17 22:59 06:59 14:59 Intake Total 2024 1294 720 Output Total 1999 480 Balance 2024 -70 240 UOP >100 cc/hr past 24 hours. Lab Results Last 24 Hours: Laboratory Results - last 24 hr 10/02/17 10/04/17 10/04/17 Range/Units 18:44 12:27 17:24 WBC (3.98-10.04) K/mm3 RBC (3.98-5.22) M/mm3 Hgb (11.2-15.7) gm/L Hct (34.1-44.9) % MCV (79.4-94.8) fl MCH (25.6-32.2) pg MCHC (32.2-35.5) g/dl RDW Std Deviation (36.4-46.3) fL Plt Count (182-369) K/mm3 MPV (9.4-12.3) fl POC Glucose 89 97 (83-110) mg/dL Blood Type O NEGATIVE Gel Antibody Screen Negative Crossmatch See Detail 10/04/17 10/04/17 10/05/17 Range/Units 21:12 22:22 06:33 WBC 6.81 (3.98-10.04) K/mm3 RBC 3.83 L (3.98-5.22) M/mm3 Hgb 10.3 L 10.6 L (11.2-15.7) gm/L Hct 30.7 L 32.0 L (34.1-44.9) % MCV 83.6 (79.4-94.8) fl MCH 27.7 (25.6-32.2) pg MCHC 33.1 (32.2-35.5) g/dl RDW Std Deviation 41.8 (36.4-46.3) fL Plt Count 224 (182-369) K/mm3 MPV 10.4 (9.4-12.3) fl POC Glucose 141 H (83-110) mg/dL Blood Type Gel Antibody Screen Crossmatch 10/05/17 Range/Units 06:34 WBC (3.98-10.04) K/mm3 RBC (3.98-5.22) M/mm3 Hgb (11.2-15.7) gm/L Hct (34.1-44.9) % MCV (79.4-94.8) fl MCH (25.6-32.2) pg MCHC (32.2-35.5) g/dl RDW Std Deviation (36.4-46.3) fL Plt Count (182-369) K/mm3 MPV (9.4-12.3) fl POC Glucose 102 (83-110) mg/dL Blood Type Gel Antibody Screen Crossmatch Med Orders - Current: Current Medications Insulin Aspart (Novolog) 0 unit SUBCUT QIDACANDBED [facility]; Protocol Last Admin: 10/05/17 06:46 Dose: Not Given Ondansetron HCl (Zofran) 4 mg IVPUSH Q8H PRN PRN Reason: Nausea Sodium Chloride (Saline Flush) 10 ml FLUSH ASDIRECTED PRN PRN Reason: Keep Vein Open Last Admin: 10/02/17 20:32 Dose: 10 ml Discontinued Medications Sodium Chloride (Normal Saline) 500 mls @ 999 mls/hr IV ONETIME ONE Stop: 10/02/17 20:36 Last Admin: 10/02/17 20:16 Dose: 999 mls/hr Sodium Chloride (Normal Saline) 1,000 mls @ 100 mls/hr IV ASDIRECTED [facility] Last Admin: 10/03/17 11:11 Dose: 100 mls/hr Sodium Chloride (Normal Saline) 1,000 mls @ 90 mls/hr IV ASDIRECTED [facility] Potassium Chloride/Dextrose/Sod Cl (D5 1/2 Ns W/ 20 Meq/L Kcl) 1,000 mls @ 100 mls/hr IV ASDIRECTED [facility] Last Admin: 10/03/17 13:46 Dose: 100 mls/hr Sodium Chloride (Normal Saline) 100 mls @ 25 mls/hr IV ASDIRECTED [facility] Last Admin: 10/04/17 13:21 Dose: 25 mls/hr Sodium Chloride (Normal Saline) Confirm Administered Dose 100 mls @ as directed .ROUTE .STK-MED ONE Stop: 10/04/17 16:46 Last Admin: 10/04/17 17:20 Dose: 25 mls/hr Insulin Aspart (Novolog) 0 unit SUBCUT Q6H [facility]; Protocol Last Admin: 10/03/17 17:39 Dose: Not Given Ondansetron HCl (Zofran) 4 mg IVPUSH ONETIME ONE Stop: 10/02/17 20:13 Last Admin: 10/02/17 20:32 Dose: 4 mg - Exam GI/Abdominal Exam: Soft, Non-Tender, No Distention - Problem List & Annotations (1) Gastrointestinal bleed SNOMED Code(s): 46523374 Code(s): K92.2 - GASTROINTESTINAL HEMORRHAGE, UNSPECIFIED Status: Acute Current Visit: Yes Qualifiers: GI bleed type/associated pathology: anorectal hemorrhage Qualified Code(s) : K62.5 - Hemorrhage of anus and rectum - Problem List Review Problem List Initiated/Reviewed/Updated: Yes - My Orders Last 24 Hours: My Active Orders 10/04/17 12:10 Transfuse PRBC [Transfuse Red Blood Cells] [COMM] Routine 10/04/17 Dinner [employer] Diet [DIET] 10/05/17 09:27 Consult to Physical Therapy [PT Evaluation and Treatment] [CONS] Routine Consult to [employer] [CONS] Routine 10/05/17 09:28 OT Evaluation and Treatment [CONS] Routine - Plan Plan:: Mrs. Vital is a 82 yo female, h/o DM2, HTN, melanoma, and GI bleed, PPD#5 s/p recent colonoscopy with biopsy of distal rectal mass lesion, presents with GI bleed and syncopal episode in the ER. Admitted late night on 02Oct2017, ICU day #4. Likely source of bleeding is the distal mass/biopsy site. - NEURO: No acute issues at this time. - CV: Hemodynamically normal. May resume home anti-hypertensive (ARB). - PULM: Encourage IS while in hospital. - GI: No acute issues. Tolerating diabetic diet. - FEN: As above. - RENAL: No acute issues. Good UOP. Closely monitor UOP. - HEME: Transfused 2 units PRBC's yesterday, with appropriate increase in Hb ( from 7.4 to 10.6 this morning). No furtehr bleeding. - ENDO: h/o DM2 on metformin. Hold metformin. BS 90's-140's. Check BS QAC and HS. - LINES: Ensure 2 large bore PIV's. - Prophyalxis: SCD's bilateral LE's. With recent bleeding, contraindication to pharmacologic VTE prophylaxis. - Cod status: DNR. - Dispo: Appreciate PT/OT input. Patient independent with ADL's, with no acute PT/OT needs. Patient would be medically safe for discharge from the ICU/ hospital today. Patient's case was discussed with her daughter, Amaya, who will arrange for daily check-up on the patient, since the patient lives by herself. Return precautions were given to the patient and her daughter. Hold home dose of ASA and avoid other NSAID's. Howard Ramos M.D., F.A.C.S. General Surgery Pager: [phone]
--- NOTE | 2017-10-05 11:29 | PCM.DCSUM1 ---
Discharge Summary - Hospital Course Free Text/Narrative:: The patient was admitted late night on 02Oct2017 with bleeding per rectum. Just two days prior to admission, she had undergone colonoscopy with Dr. Fernandez, General Surgeon, which was performed for rectal bleeding. The colonoscopy was significant for a distal rectal mass, which underwent biopsy. Given this history , the patient's likely source of bleeding is this biopsy site/rectal mass. While in the ED, the patient had a syncopal episode after another bloody bowel movement. She was admitted to the ICU for closer observation, with serial H/H. Clinically, she did well during her ICU stay, with no further episodes of bleeding. Her hemoglobin dropped from 9 on day of admission to 7.4 on ICU day #3 , so 2 units of PRBC's were transfused, with appropriate increase in her hemoglobin to 10.6. She remained hemodynamically normal during her hospitalization. On 05Oct2016, she met discharge criteria. Instructions were given to hold her home aspirin. Also, she was instructed to follow-up with Dr. Fenrandez regarding the colonoscopy/biopsy results. Howard Ramos M.D., F.A.C.S. General Surgery Pager: [phone] - Discharge Data Discharge Date: 10/05/17 Discharge Disposition: Home, Self-Care 01 Condition: Good - Discharge Diagnosis/Problem(s) (1) Gastrointestinal bleed SNOMED Code(s): 75637702 ICD Code: K92.2 - GASTROINTESTINAL HEMORRHAGE, UNSPECIFIED Status: Acute Current Visit: Yes Qualifiers: GI bleed type/associated pathology: anorectal hemorrhage Qualified Code(s) : K62.5 - Hemorrhage of anus and rectum - Patient Summary/Data Consults: Consultations 10/05/17 09:27 Consult to Physical Therapy [PT Evaluation and Treatment] [CONS] Routine Consult to [facility] [CONS] Routine 10/05/17 09:28 OT Evaluation and Treatment [CONS] Routine - Patient Instructions Diet: Diabetic Diet Showering/Bathing: May Shower - Discharge Plan Home Medications: Home Meds Losartan [Cozaar] 50 mg PO DAILY 09/29/17 [History] Oxybutynin 5 mg PO TID PRN 09/29/17 [History] Sertraline HCl 200 mg PO DAILY 09/29/17 [History] atorvaSTATin [Lipitor] 10 mg PO BEDTIME 09/29/17 [History] metFORMIN HCl [Metformin HCl] 500 mg PO DAILY 09/29/17 [History] Patient Handouts: Rectal Bleeding, [id number] Referrals: Vik Fernandez MD [Physician] - (Follow-up with Dr. Fernandez post- colonoscopy as scheduled) - Discharge Summary/Plan Comment DC Time >30 min.: Yes - Patient Data Vitals - Most Recent: Last Vital Signs Temp 36.8 C 10/05/17 08:00 Pulse 63 10/05/17 08:00 Resp 12 10/05/17 08:00 BP 151/62 H 10/05/17 08:00 Pulse Ox 97 10/05/17 08:00 Weight - Most Recent: 92.669 kg I&O - Last 24 hours: Intake & Output 10/04/17 10/05/17 10/05/17 22:59 06:59 14:59 Intake Total 2024 1294 720 Output Total 1999 480 Balance 2025 -706 240 Lab Results - Last 24 hrs: Laboratory Results - last 24 hr 10/02/17 10/04/17 10/04/17 Range/Units 18:44 12:27 17:24 WBC (3.98-10.04) K/mm3 RBC (3.98-5.22) M/mm3 Hgb (11.2-15.7) gm/L Hct (34.1-44.9) % MCV (79.4-94.8) fl MCH (25.6-32.2) pg MCHC (32.2-35.5) g/dl RDW Std Deviation (36.4-46.3) fL Plt Count (182-369) K/mm3 MPV (9.4-12.3) fl POC Glucose 89 97 (83-110) mg/dL Blood Type O NEGATIVE Gel Antibody Screen Negative Crossmatch See Detail 10/04/17 10/04/17 10/05/17 Range/Units 21:12 22:22 06:33 WBC 6.81 (3.98-10.04) K/mm3 RBC 3.83 L (3.98-5.22) M/mm3 Hgb 10.3 L 10.6 L (11.2-15.7) gm/L Hct 30.7 L 32.0 L (34.1-44.9) % MCV 83.6 (79.4-94.8) fl MCH 27.7 (25.6-32.2) pg MCHC 33.1 (32.2-35.5) g/dl RDW Std Deviation 41.8 (36.4-46.3) fL Plt Count 224 (182-369) K/mm3 MPV 10.4 (9.4-12.3) fl POC Glucose 141 H (83-110) mg/dL Blood Type Gel Antibody Screen Crossmatch 10/05/17 Range/Units 06:34 WBC (3.98-10.04) K/mm3 RBC (3.98-5.22) M/mm3 Hgb (11.2-15.7) gm/L Hct (34.1-44.9) % MCV (79.4-94.8) fl MCH (25.6-32.2) pg MCHC (32.2-35.5) g/dl RDW Std Deviation (36.4-46.3) fL Plt Count (182-369) K/mm3 MPV (9.4-12.3) fl POC Glucose 102 (83-110) mg/dL Blood Type Gel Antibody Screen Crossmatch Med Orders - Current: Current Medications Insulin Aspart (Novolog) 0 unit SUBCUT QIDACANDBED COUNTS INCLUDE 234 BEDS AT THE [facility]; Protocol Last Admin: 10/05/17 06:46 Dose: Not Given Ondansetron HCl (Zofran) 4 mg IVPUSH Q8H PRN PRN Reason: Nausea Sodium Chloride (Saline Flush) 10 ml FLUSH ASDIRECTED PRN PRN Reason: Keep Vein Open Last Admin: 10/02/17 20:32 Dose: 10 ml Discontinued Medications Sodium Chloride (Normal Saline) 500 mls @ 999 mls/hr IV ONETIME ONE Stop: 10/02/17 20:36 Last Admin: 10/02/17 20:16 Dose: 999 mls/hr Sodium Chloride (Normal Saline) 1,000 mls @ 100 mls/hr IV ASDIRECTED COUNTS INCLUDE 234 BEDS AT THE [facility] Last Admin: 10/03/17 11:11 Dose: 100 mls/hr Sodium Chloride (Normal Saline) 1,000 mls @ 90 mls/hr IV ASDIRECTED COUNTS INCLUDE 234 BEDS AT THE [facility] Potassium Chloride/Dextrose/Sod Cl (D5 1/2 Ns W/ 20 Meq/L Kcl) 1,000 mls @ 100 mls/hr IV ASDIRECTED [facility] Last Admin: 10/03/17 13:46 Dose: 100 mls/hr Sodium Chloride (Normal Saline) 100 mls @ 25 mls/hr IV ASDIRECTED [facility] Last Admin: 10/04/17 13:21 Dose: 25 mls/hr Sodium Chloride (Normal Saline) Confirm Administered Dose 100 mls @ as directed .ROUTE .STK-MED ONE Stop: 10/04/17 16:46 Last Admin: 10/04/17 17:20 Dose: 25 mls/hr Insulin Aspart (Novolog) 0 unit SUBCUT Q6H [facility]; Protocol Last Admin: 10/03/17 17:39 Dose: Not Given Ondansetron HCl (Zofran) 4 mg IVPUSH ONETIME ONE Stop: 10/02/17 20:13 Last Admin: 10/02/17 20:32 Dose: 4 mg *Q Meaningful Use (DIS) - VTE *Q VTE Pharmacological Contraindications *Q: Active Hemorrhage
== END 2017-10-05 13:50 | disposition home or self-care (01) | DRG 920 ==
LOC: JD.ED 17:35 → JD.ICU 21:47
PROVIDERS: ADMIT Student in an Organized Health Care Education/Training Program; ATTEND Student in an Organized Health Care Education/Training Program
PROC: 30233N1 Transfusion of Nonautologous Red Blood Cells into Peripheral Vein, Percutaneous Approach (ICD-10-PCS; principal; 2017-10-04)
DX: K91.840 Postprocedural hemorrhage of a digestive system organ or structure following a digestive system procedure (principal); K62.5 Hemorrhage of anus and rectum; Y84.8 Other medical procedures as the cause of abnormal reaction of the patient, or of later complication, without mention of misadventure at the time of the procedure; R10.9 Unspecified abdominal pain; E78.00 Pure hypercholesterolemia, unspecified; I10 Essential (primary) hypertension; J45.909 Unspecified asthma, uncomplicated; K21.9 Gastro-esophageal reflux disease without esophagitis; M19.90 Unspecified osteoarthritis, unspecified site; F32.9 Major depressive disorder, single episode, unspecified; E11.9 Type 2 diabetes mellitus without complications; M54.9 Dorsalgia, unspecified; R55 Syncope and collapse; R41.0 Disorientation, unspecified; K62.9 Disease of anus and rectum, unspecified; Z88.2 Allergy status to sulfonamides; Z88.8 Allergy status to other drugs, medicaments and biological substances; Z87.440 Personal history of urinary (tract) infections; Z85.820 Personal history of malignant melanoma of skin; Z96.649 Presence of unspecified artificial hip joint; Z79.84 Long term (current) use of oral hypoglycemic drugs; Z79.82 Long term (current) use of aspirin; Z79.899 Other long term (current) drug therapy; Z87.891 Personal history of nicotine dependence; Z66 Do not resuscitate
CPT/HCPCS: 36415; 74019; 80053; 84484; 85014; 85018; 85025; 85610; 85730; 86850; 86900; 86901; 86922; 93005; 96361; 96374; 99285; J2405; J7040; J7050; 36430; 80048; 82962; 85027; 97161-GP; 97165-GO; J3480; J7030; P9016

== ENCOUNTER 2018-12-05 20:32 | Emergency (ER) | payer MEDICARE, OTHER ==
[2018-12-05] MEDS ORDERED: Sodium Chloride 0.9% 10 ML Syringe FLUSH PRN (21:15)
[2018-12-05] MEDS ORDERED: Albuterol/Ipratropium 3.0-0.5 MG/3 ML Neb Soln NEB ONE (21:15)
[2018-12-05] MEDS ORDERED: methylPREDNISolone Sodium Succinate 125 MG/2 ML SDV IVPUSH ONE (21:56)
--- NOTE | 2018-12-05 21:57 | EDM.PDOC ---
ED HPI GENERAL MEDICAL PROBLEM - General Chief Complaint: Respiratory Problem Stated Complaint: SOB Time Seen by Provider: 12/05/18 20:52 Source of Information: Reports: Patient, RN Notes Reviewed - History of Present Illness INITIAL COMMENTS - FREE TEXT/NARRATIVE: 83 year old female with worsening shortness of breath for the past week or so, especially yesterday and today. No chest pain. Severe dyspnea yesterday and today with even slow walking. Has been coughing for a week or more, mostly nonprod. No obvious fever or chills. She did smoke for many years, stopped about 15 to 20 yrs ago. No known hx of CAD, CHF. - Related Data Allergies Allergy/AdvReac Type Severity Reaction Status Date / Time piroxicam Allergy Cannot Verified 12/05/18 20:46 Remember Sulfa (Sulfonamide Allergy Cannot Verified 12/05/18 20:46 Antibiotics) Remember Home Meds: Home Meds Losartan [Cozaar] 50 mg PO DAILY 09/29/17 [History] Oxybutynin 5 mg PO TID PRN 09/29/17 [History] Sertraline HCl 200 mg PO DAILY 09/29/17 [History] atorvaSTATin [Lipitor] 10 mg PO BEDTIME 09/29/17 [History] metFORMIN HCl [Metformin HCl] 500 mg PO DAILY 09/29/17 [History] Levofloxacin [Levaquin] 500 mg PO DAILY #7 tablet 12/05/18 [Rx] predniSONE [Prednisone] 20 mg PO DAILY 5 Days #5 tablet 12/05/18 [Rx] Past Medical History HEENT History: Reports: Other (See Below) Other HEENT History: facial trauma Cardiovascular History: Reports: High Cholesterol, Hypertension Respiratory History: Reports: Asthma Gastrointestinal History: Reports: GERD, Other (See Below) Other Gastrointestinal History: abdomnial pain, rectal bleeding, cdiff Genitourinary History: Reports: UTI, Recurrent, Other (See Below) Other Genitourinary History: [employer] History: Reports: None Musculoskeletal History: Reports: Arthritis, Other (See Below) Other Musculoskeletal History: knee abrasions Neurological History: Reports: None Psychiatric History: Reports: Depression Endocrine/Metabolic History: Reports: Diabetes, Type II Hematologic History: Reports: Other (See Below) Other Hematologic History: traumatic hematoma of cheek Immunologic History: Reports: None Oncologic (Cancer) History: Reports: Lung Dermatologic History: Reports: Other (See Below) Other Dermatologic History: melanoma, rash, skin lesion - Infectious Disease History Infectious Disease History: Reports: C-Difficile, Chicken Pox, Measles Other Infectious Disease History: hepatitis unsure of type - Past Surgical History Head Surgeries/Procedures: Reports: None HEENT Surgical History: Reports: Cataract Surgery, Tonsillectomy Respiratory Surgical History: Reports: Other (See Below) Other Respiratory Surgeries/Procedures: lung surgery GI Surgical History: Reports: Appendectomy, Colonoscopy, Colostomy, Hernia, Inguinal Female Surgical History: Reports: Oophorectomy Endocrine Surgical History: Reports: None Neurological Surgical History: Reports: None Musculoskeletal Surgical History: Reports: Hip Replacement - History Comment History Comment: No prior [place] or stroke. Social & Family History - Family History Family Medical History: Noncontributory - Tobacco Use Smoking Status *Q: Former Smoker Used Tobacco, but Quit: Yes Month/Year Tobacco Last Used: 20 years - Caffeine Use Caffeine Use: Reports: Coffee Other Caffeine Use: 5 cups of coffee/day and will sometimes drink soda - Recreational Drug Use Recreational Drug Use: No - Living Situation & Occupation Living situation: Reports: Alone ED ROS GENERAL - Review of Systems Review Of Systems: See Below Constitutional: Denies: Fever, Chills HEENT: Reports: No Symptoms Respiratory: Reports: Shortness of Breath, Wheezing, Cough, Sputum (occasional) Cardiovascular: Reports: Dyspnea on Exertion. Denies: Chest Pain GI/Abdominal: Denies: Abdominal Pain, Nausea, Vomiting Musculoskeletal: Denies: Arm Pain Skin: Reports: No Symptoms Neurological: Reports: Dizziness. Denies: Numbness, Tingling, Trouble Speaking ED EXAM, GENERAL - Physical Exam Exam: See Below General Appearance: Alert, No Apparent Distress Eye Exam: Bilateral Eye: PERRL Throat/Mouth: Normal Inspection Neck: Supple, Other (no JVD) Respiratory/Chest: Respiratory Distress (mild tachypnea), Wheezing (very mild end expiratory). No: Rales, Rhonchi Cardiovascular: Regular Rate, Rhythm GI/Abdominal: Soft, Non-Tender. No: Guarding Extremities: Normal Inspection. No: Pedal Edema, Leg Pain, Increased Warmth, Redness Neurological: Alert, Oriented, No Motor/Sensory Deficits Skin Exam: Warm, Dry, Normal Color Course - Vital Signs Last Recorded V/S: Last Vital Signs Temp 98.1 F 12/05/18 20:43 Pulse 91 12/05/18 20:43 Resp 16 12/05/18 20:43 BP 142/79 H 12/05/18 20:43 Pulse Ox 94 L 12/05/18 23:28 - Orders/Labs/Meds Orders: Active Orders 24 hr Category Date Time Status EKG 12 Lead [EKG Documentation Completion] [RC] STAT Care 12/05/18 21:14 Active Peripheral IV Care [RC] . DIRECTED Care 12/05/18 21:15 Active RT Aerosol Therapy [RC] ASDIRECTED Care 12/05/18 21:15 Active RT Aerosol Therapy [RC] ASDIRECTED Care 12/05/18 23:20 Active Chest 1V Frontal [CR] Stat Exams 12/05/18 21:14 Taken Sodium Chloride 0.9% [Saline Flush] Med 12/05/18 21:15 Active 10 ml FLUSH ASDIRECTED PRN Peripheral IV Insertion Adult [OM.PC] Stat Oth 12/05/18 21:14 Ordered Medication Orders Sodium Chloride (Saline Flush) 10 ml FLUSH ASDIRECTED PRN PRN Reason: Keep Vein Open Last Admin: 12/05/18 22:36 Dose: 10 ml Labs: Laboratory Tests 12/05/18 12/05/18 12/05/18 Range/Units 21:35 21:35 21:35 WBC 14.28 H (3.98-10.04) K/mm3 RBC 3.97 L (3.98-5.22) M/mm3 Hgb 11.4 (11.2-15.7) gm/L Hct 33.8 L (34.1-44.9) % MCV 85.1 (79.4-94.8) fl MCH 28.7 (25.6-32.2) pg MCHC 33.7 (32.2-35.5) g/dl RDW Std Deviation 48.4 H (36.4-46.3) fL Plt Count 209 (182-369) K/mm3 MPV 10.6 (9.4-12.3) fl Neut % (Auto) 89.3 H (34.0-71.1) % Lymph % (Auto) 2.1 L (19.3-51.7) % Alcorn % (Auto) 6.4 (4.7-12.5) % Eos % (Auto) 1.8 (0.7-5.8) Baso % (Auto) 0.1 (0.1-1.2) % Neut # (Auto) 12.76 H (1.56-6.13) K/mm3 Lymph # (Auto) 0.30 L (1.18-3.74) K/mm3 Alcorn # (Auto) 0.91 H (0.24-0.36) K/mm3 Eos # (Auto) 0.25 (0.04-0.36) K/mm3 Baso # (Auto) 0.02 (0.01-0.08) K/mm3 Manual Slide Review Abnormal smear Sodium 130 L (136-145) mEq/L Potassium 4.1 (3.5-5.1) mEq/L Chloride 95 L (98-107) mEq/L Carbon Dioxide 25 (21-32) mEq/L Anion Gap 14.1 (5-15) BUN 16 (7-18) mg/dL Creatinine 0.8 (0.55-1.02) mg/dL Est Cr Clr Drug Dosing 47.10 mL/min Estimated GFR (MDRD) > 60 (>60) mL/min BUN/Creatinine Ratio 20.0 H (14-18) Glucose 166 H (83-115) mg/dL Calcium 9.1 (8.5-10.1) mg/dL Total Bilirubin 0.4 (0.2-1.0) mg/dL AST 18 (15-37) U/L ALT 20 (14-59) U/L Alkaline Phosphatase 63 (46-116) U/L Troponin I < 0.017 (0.00-0.056) ng/mL C-Reactive Protein 7.5 H* (<1.0) mg/dL NT-Pro-B Natriuret Pep (0-450) pg/mL Total Protein 7.0 (6.4-8.2) g/dl Albumin 3.8 (3.4-5.0) g/dl Globulin 3.2 gm/dL Albumin/Globulin Ratio 1.2 (1-2) 12/05/18 Range/Units 21:35 WBC (3.98-10.04) K/mm3 RBC (3.98-5.22) M/mm3 Hgb (11.2-15.7) gm/L Hct (34.1-44.9) % MCV (79.4-94.8) fl MCH (25.6-32.2) pg MCHC (32.2-35.5) g/dl RDW Std Deviation (36.4-46.3) fL Plt Count (182-369) K/mm3 MPV (9.4-12.3) fl Neut % (Auto) (34.0-71.1) % Lymph % (Auto) (19.3-51.7) % Alcorn % (Auto) (4.7-12.5) % Eos % (Auto) (0.7-5.8) Baso % (Auto) (0.1-1.2) % Neut # (Auto) (1.56-6.13) K/mm3 Lymph # (Auto) (1.18-3.74) K/mm3 Alcorn # (Auto) (0.24-0.36) K/mm3 Eos # (Auto) (0.04-0.36) K/mm3 Baso # (Auto) (0.01-0.08) K/mm3 Manual Slide Review Sodium (136-145) mEq/L Potassium (3.5-5.1) mEq/L Chloride (98-107) mEq/L Carbon Dioxide (21-32) mEq/L Anion Gap (5-15) BUN (7-18) mg/dL Creatinine (0.55-1.02) mg/dL Est Cr Clr Drug Dosing mL/min Estimated GFR (MDRD) (>60) mL/min BUN/Creatinine Ratio (14-18) Glucose (83-115) mg/dL Calcium (8.5-10.1) mg/dL Total Bilirubin (0.2-1.0) mg/dL AST (15-37) U/L ALT (14-59) U/L Alkaline Phosphatase (46-116) U/L Troponin I (0.00-0.056) ng/mL C-Reactive Protein (<1.0) mg/dL NT-Pro-B Natriuret Pep 368 (0-450) pg/mL Total Protein (6.4-8.2) g/dl Albumin (3.4-5.0) g/dl Globulin gm/dL Albumin/Globulin Ratio (1-2) Meds: Medications Generic Name Dose Route Start Last Admin Trade Name Aby PRN Reason Stop Dose Admin Sodium Chloride 10 ml 12/05/18 21:15 12/05/18 22:36 Saline Flush FLUSH 10 ml ASDIRECTED PRN Administration Keep Vein Open Discontinued Medications Generic Name Dose Route Start Last Admin Trade Name Aby PRN Reason Stop Dose Admin Albuterol 2.5 mg 12/05/18 23:20 12/05/18 23:28 Proventil Neb Soln NEB 12/05/18 23:21 2.5 mg ONETIME ONE Administration Albuterol/Ipratropium 3 ml 12/05/18 21:15 12/05/18 21:54 Duoneb 3.0-0.5 Mg/3 Ml NEB 12/05/18 21:16 3 ml ONETIME ONE Administration Levofloxacin 500 mg 12/05/18 23:18 12/05/18 23:25 Levaquin PO 12/05/18 23:19 500 mg ONETIME ONE Administration Methylprednisolone Sodium Succinate 125 mg 12/05/18 21:56 12/05/18 22:35 Solu-Medrol IVPUSH 12/05/18 21:57 125 mg ONETIME ONE Administration - Re-Assessments/Exams Free Text/Narrative Re-Assessment/Exam: 12/06/18 00:05 EKG showed some mild nonspecific changes, troponin came back negative, BNP relatively low. Chest x-ray shows increased haziness bilateral lower lobes, difficult to exclude early pneumonia. White blood count was also mildly elevated as noted in history she does have increased cough which is at times productive of yellowish phlegm. Her breathing did improve after a dual nab. Did also do a follow-up albuterol neb just prior to discharge. Given Levaquin 500 mg orally and will have her continue that as 500 mg daily for the next 7 days. We did give Solu-Medrol IV. We'll have her continue with prednisone 20 mg daily for the next 5 days. She does feel and look well enough to go home, discharge instructions as documented. Departure - Departure Time of Disposition: 23:19 Disposition: Home, Self-Care 01 Condition: Fair Clinical Impression: Bronchitis Dyspnea Qualifiers: Dyspnea type: dyspnea on exertion Qualified Code(s): R06.09 - Other forms of dyspnea - Discharge Information Prescriptions: Levofloxacin [Levaquin] 500 mg PO DAILY #7 tablet predniSONE [Prednisone] 20 mg PO DAILY 5 Days #5 tablet Instructions: Shortness of Breath, Adult, [id number], Acute Bronchitis, Adult , [id number] Referrals: PCP,None [Primary Care Provider] - Forms: ED Department Discharge Additional Instructions: Your CXR shows bronchitis, possible early walking pneumonia. Rest, levquin antibiotic 500 mg daily for the next week, prednisone 40 mg q AM for the next 5 days. these prescriptions have been sent electronic to the [facility]. Albuterol inhaler 2 puffs q 4 to 6 hour or about 4 times daily, See Shanika at clinic in about 3 days for recheck, call for appt. Return to ED as needed if symptoms worsening in any way. - My Orders Last 24 Hours: My Active Orders 12/05/18 21:14 EKG 12 Lead [EKG Documentation Completion] [RC] STAT Chest 1V Frontal [CR] Stat Peripheral IV Insertion Adult [OM.PC] Stat 12/05/18 21:15 Peripheral IV Care [RC] . DIRECTED RT Aerosol Therapy [RC] ASDIRECTED Sodium Chloride 0.9% [Saline Flush] 10 ml FLUSH ASDIRECTED PRN 12/05/18 23:20 RT Aerosol Therapy [RC] ASDIRECTED - Assessment/Plan Last 24 Hours: My Active Orders 12/05/18 21:14 EKG 12 Lead [EKG Documentation Completion] [RC] STAT Chest 1V Frontal [CR] Stat Peripheral IV Insertion Adult [OM.PC] Stat 12/05/18 21:15 Peripheral IV Care [RC] . DIRECTED RT Aerosol Therapy [RC] ASDIRECTED Sodium Chloride 0.9% [Saline Flush] 10 ml FLUSH ASDIRECTED PRN 12/05/18 23:20 RT Aerosol Therapy [RC] ASDIRECTED
[2018-12-05] MEDS ORDERED: Levofloxacin 500 MG Tab PO ONE (23:18)
[2018-12-05] MEDS ORDERED: Albuterol 0.083% 2.5 MG/3 ML Neb Soln NEB ONE (23:20)
--- NOTE | 2018-12-06 06:00 | CR ---
Chest: Frontal view of the chest was obtained. Comparison: Prior chest x-ray of 06/01/18. Heart size is normal. Tortuous thoracic aorta is seen. Slight increased lung markings are noted from prior exam. No alveolar type densities are seen. Previous right shoulder surgery is noted. Impression: 1. Increasing lung markings on both sides of the chest from prior chest x-ray. Differential includes pulmonary vascular congestion versus bronchitis. Diagnostic code #3
== END 2018-12-05 23:45 | disposition home or self-care (01) ==
LOC: JD.ED 20:32
DX: J40 Bronchitis, not specified as acute or chronic (principal); R06.09 Other forms of dyspnea; E78.00 Pure hypercholesterolemia, unspecified; I10 Essential (primary) hypertension; K21.9 Gastro-esophageal reflux disease without esophagitis; E11.9 Type 2 diabetes mellitus without complications; F32.9 Major depressive disorder, single episode, unspecified; Z87.891 Personal history of nicotine dependence; Z88.2 Allergy status to sulfonamides; Z79.899 Other long term (current) drug therapy; Z79.84 Long term (current) use of oral hypoglycemic drugs
CPT/HCPCS: 36415; 71045; 80053; 83880; 84484; 85025; 86140; 93005; 94640; 96374; 99285; A9270; J2930; 93010; 99283; J7620-GY

== ENCOUNTER 2021-03-22 11:46 | Emergency (ER) | payer MEDICARE, OTHER ==
--- NOTE | 2021-03-22 13:48 | CR ---
Left shoulder: 3 views of the left shoulder were obtained. Comparison: Prior left shoulder study of 02/24/20. Slight deformity within the glenoid is seen inferiorly. This presumably represents previous fracture. Mild degenerative change is seen within the glenohumeral joint. Joint space narrowing and mild spurring is seen within the acromioclavicular joint. There are findings suspicious for possible chronic rotator cuff tear. Impression: 1. Findings suspicious for old fracture within the inferior glenoid. 2. Degenerative change as described above. 3. Findings suspicious for chronic rotator cuff tear. Diagnostic code #3
--- NOTE | 2021-03-22 13:53 | EDM.PDOC ---
ED HPI GENERAL MEDICAL PROBLEM - General Chief Complaint: Back Pain or Injury Stated Complaint: BACK PAIN/HIGH BP Time Seen by Provider: 03/22/21 12:22 Source of Information: Reports: Patient, RN Notes Reviewed - History of Present Illness INITIAL COMMENTS - FREE TEXT/NARRATIVE: 85 yr old female with L shoulder pain chronically, worse the past 2 weeks. Went to the [facility] today, sent here for Xrays. No recent fall or injury. No pain at rest but pain with any type of motion. Treatments [employer]INE [employer]: Reports: Acetaminophen Left Shoulder Pain Score (Numeric/FACES): 3 - Related Data Allergies Allergy/AdvReac Type Severity Reaction Status Date / Time Sulfa (Sulfonamide Allergy Cannot Verified 03/22/21 12:12 Antibiotics) Remember Home Meds: Home Meds Losartan [Cozaar] 50 mg PO DAILY 09/29/17 [History] Oxybutynin 5 mg PO TID PRN 09/29/17 [History] Sertraline HCl 200 mg PO DAILY 09/29/17 [History] atorvaSTATin [Lipitor] 10 mg PO BEDTIME 09/29/17 [History] metFORMIN HCl [Metformin HCl] 500 mg PO DAILY 09/29/17 [History] predniSONE [Prednisone] 20 mg PO DAILY 5 Days #5 tablet 03/22/21 [Rx] Past Medical History HEENT History: Reports: Allergic Rhinitis, Other (See Below) Other HEENT History: facial trauma Cardiovascular History: Reports: High Cholesterol, Hypertension Respiratory History: Reports: Asthma Gastrointestinal History: Reports: GERD, Other (See Below) Other Gastrointestinal History: abdomnial pain, rectal bleeding, cdiff Genitourinary History: Reports: UTI, Recurrent, Other (See Below) Other Genitourinary History: [employer] History: Reports: None Musculoskeletal History: Reports: Arthritis, Other (See Below) Other Musculoskeletal History: knee abrasions Neurological History: Reports: None Psychiatric History: Reports: Depression Endocrine/Metabolic History: Reports: Diabetes, Type II Hematologic History: Reports: Other (See Below) Other Hematologic History: traumatic hematoma of cheek Immunologic History: Reports: None Oncologic (Cancer) History: Reports: Other (See Below) Other Oncologic History: rectal cancer Dermatologic History: Reports: Other (See Below) Other Dermatologic History: melanoma, rash, skin lesion - Infectious Disease History Infectious Disease History: Reports: C-Difficile, Chicken Pox, Measles Other Infectious Disease History: hepatitis unsure of type - Past Surgical History Head Surgeries/Procedures: Reports: None HEENT Surgical History: Reports: Cataract Surgery, Tonsillectomy Respiratory Surgical History: Reports: Other (See Below) Other Respiratory Surgeries/Procedures: lung surgery GI Surgical History: Reports: Appendectomy, Colonoscopy, Colostomy, Hernia, Inguinal Female Surgical History: Reports: Hysterectomy, Oophorectomy Endocrine Surgical History: Reports: None Neurological Surgical History: Reports: None Musculoskeletal Surgical History: Reports: Hip Replacement - History Comment History Comment: No prior [place] or stroke. Social & Family History - Family History Family Medical History: No Pertinent Family History - Tobacco Use Tobacco Use Status *Q: Former Tobacco User Used Tobacco, but Quit: Yes Month/Year Tobacco Last Used: 14 years - Caffeine Use Caffeine Use: Reports: Coffee Other Caffeine Use: 5 cups of coffee/day and will sometimes drink soda - Recreational Drug Use Recreational Drug Use: No - Living Situation & Occupation Living situation: Reports: Alone Review of Systems - Review of Systems Review Of Systems: See Below Constitutional: Reports: No Symptoms Respiratory: Reports: No Symptoms Cardiovascular: Reports: No Symptoms GI/Abdominal: Reports: No Symptoms Musculoskeletal: Reports: Shoulder Pain Skin: Reports: No Symptoms Neurological: Reports: No Symptoms ED EXAM, GENERAL - Physical Exam Exam: See Below General Appearance: Alert, No Apparent Distress Head: Atraumatic Neck: Supple Respiratory/Chest: No Respiratory Distress, Lungs Clear, Normal Breath Sounds Cardiovascular: Regular Rate, Rhythm Extremities: Other (mild tenderness ant. R shoulder, pain with abduction, cannot raise to 180, some pain with motion all directions. ) Skin Exam: No: Erythema, Increased Warmth (tender ant shoulder. no swelling. pain with abduction, ant. and post motion) Course - Vital Signs Last Recorded V/S: Last Vital Signs Temp 97.8 F 03/22/21 12:06 Pulse 66 03/22/21 12:06 Resp 16 03/22/21 12:06 BP 160/66 H 03/22/21 12:06 Pulse Ox 97 03/22/21 12:06 - Re-Assessments/Exams Free Text/Narrative Re-Assessment/Exam: 03/22/21 13:52 Xrays of shoulder show some degenerative changes, no apparent acute fx. Departure - Departure Time of Disposition: 13:49 Disposition: Home, Self-Care 01 Condition: Fair Clinical Impression: Shoulder pain, left Qualifiers: Chronicity: acute Qualified Code(s): M25.512 - Pain in left shoulder - Discharge Information Prescriptions: predniSONE [Prednisone] 20 mg PO DAILY 5 Days #5 tablet Instructions: Shoulder Pain, [id number] Referrals: Quynh Chung PA-C [Primary Care Provider] - Forms: ED Department Discharge Additional Instructions: Rest arm and shoulder, no heavy lifting. Tylenol 500 mg 3 to 4 times daily, you may take 1/2 tablet tramadol in between doses for extra pain relief as needed. Alternate ice and heat as needed. Prednisone 20 mg daily for 5 days. Prescription has been sent to the [facility]. See Dr Arias, Orthopedist for possible injection. Call [phone] for appointment. Check your BP 2 to 3 times daily and keep a record. Follow up clinic in about 1 week, bring record of BP readings with you for that appointment.
== END 2021-03-22 14:10 | disposition home or self-care (01) ==
LOC: JD.ED 11:46
DX: M25.512 Pain in left shoulder (principal); E78.00 Pure hypercholesterolemia, unspecified; I10 Essential (primary) hypertension; J45.909 Unspecified asthma, uncomplicated; K21.9 Gastro-esophageal reflux disease without esophagitis; E11.9 Type 2 diabetes mellitus without complications; Z87.891 Personal history of nicotine dependence; Z88.2 Allergy status to sulfonamides; Z79.899 Other long term (current) drug therapy; Z79.84 Long term (current) use of oral hypoglycemic drugs
CPT/HCPCS: 73030-26-LT; 73030-LT; 99283-25